=== PATIENT | male | born 1985 | race Caucasian/White ===

== ENCOUNTER 2021-03-23 10:08 | Emergency (ER) | payer OTHER, SELFPAY ==
[2021-03-23 10:27] VITALS: BP 142/87; PULSE 100; RESP 18; TEMP 36.8; O2SAT 99
--- NOTE | 2021-03-23 10:44 | ED.BACK ---
HPI - Back Pain/Injury General Chief Complaint: Back Pain/Injury Stated Complaint: Lower back pain Time Seen by Provider: 03/23/21 10:35 Source: patient Mode of arrival: ambulatory Limitations: no limitations History of Present Illness HPI Narrative: Ten Solomon is a 35 yo male with no PMH [facility] pain that was 2 weeks old that made him stay off work. He states he has been sitting basically and getting up and doing things until his back starts to hurt and then sitting down again. He has not iced his back taken Tylenol or taken ibuprofen. However today he seems able to move relatively well for his physical condition. He is a smoker Related Data Allergies Allergy/AdvReac Type Severity Reaction Status Date / Time No Known Allergies Allergy Verified 03/23/21 10:34 Review of Systems Review of Systems: CONSTITUTIONAL: Denies fever, chills, sweats. EYES: Denies visual changes, redness, discharge. ENT: Denies rhinorrhea, congestion, sore throat, otalgia. CARDIOVASCULAR: Denies chest pain, palpitations, edema. RESPIRATORY: Denies dyspnea, wheezing, cough GASTROINTESTINAL: Denies abdominal pain, nausea, vomiting, diarrhea. GENITOURINARY: Denies dysuria, hematuria, abnormal discharge SKIN: Denies rash or itching. NEUROLOGIC: Denies numbness, or focal weakness. PSYCHIATRIC: Denies anxiety or depression. Lumbar back pain PMFSH Past Medical History Medical History No acute medical problems Surgical History Surgical History H/O knee surgery 2011,2012,2013 - Dr. Pena Family History Family History Other High cholesterol Social History Social History Smoking status: Current every day smoker Alcohol intake: never Additional occupation/education comments: [employer], industrial truck operator Gender identity (if verbalized by the patient): Male Comments At time of signature, I agree with nursing past medical, surgical, social and family history. There is no relevant family history pertinent to the presenting complaint. Exam Narrative: GENERAL: This is a well-nourished, well-developed patient, in mild distress. Patient does not appear to be in great physical condition HEAD: normocephalic, atraumatic. EYES: Sclera clear/white. Vision is grossly intact. EARS: External ears normal,. Hearing grossly intact. NOSE: External nose normal without nasal discharge, nares without redness, no rhinorrhea. THROAT: Mucous membranes moist, NECK: Neck supple, CARDIOVASCULAR: Mild tachycardia rate and rhythm without murmurs, gallops, or rubs. RESPIRATORY: Clear to auscultation. Breath sounds equal bilaterally. No wheezes, rales, or rhonchi. GASTROINTESTINAL: Abdomen soft SKIN: warm, intact with no suspicious lesions or rash, good texture and turgor. NEURO: awake, alert, and oriented to person, place and time. There were no obvious focal neurologic abnormalities. Steady gait EXTREMITIES: Normal range of motion. BACK: Mildly tender without deformity; able to bend forward although cannot touch toes, able to twist left arm right without pain Course Course Emergency Course: Patient comes to [facility] with 2-week old back pain he is trying to go back to work and he also has no medication for the lumbar back pain that he is experiencing Started on baclofen and ibuprofen 800 mg cautioned to eat with taking ibuprofen He will take note that he was seen here to her human resources and try to work out his Workmen's Comp. package Vital Signs Vital signs: Vital Signs Temperature 98.2 F 03/23/21 10:27 Pulse Rate 100 03/23/21 10:27 Respiratory Rate 18 03/23/21 10:27 Blood Pressure 142/87 H 03/23/21 10:27 Pulse Oximetry 99 03/23/21 10:27 Temperature 98.2 F 03/23/21 10:27 Pulse Rate 1
== END 2021-03-23 11:00 | disposition home or self-care (01) ==
PROVIDERS: Emergency Provider Nurse Practitioner
DX: S39.012A Strain of muscle, fascia and tendon of lower back, initial encounter (principal); X58.XXXA Exposure to other specified factors, initial encounter
CPT/HCPCS: 99213; G0463

== ENCOUNTER 2022-06-07 08:54 | Outpatient (CLI) | payer OTHER, SELFPAY ==
[2022-06-07 19:11] LABS: Basophils Absolute Auto 0.1 K/mm3 (0.0-0.1); Basophils Percent Auto 1.4 % (0.2-1.2); Eosinophils Absolute Auto 0.3 K/mm3 (0-0.3); Eosinophils Percent Auto 4.6 % (0-4.4); Hematocrit 46.3 % (42.0-52.0); Hemoglobin 14.2 g/dL (14.0-18.0); Immature Granulocyte Absolute 0.03 K/mm3 (0.00-0.031); Immature Granulocyte Percent A 0.4 % (0-0.5); Lymphocytes Absolute Auto 2.38 K/mm3 (0.9-3.2); Lymphocytes Percent Auto 32.9 % (18.3-44.2); Mean Corpuscular HGB Conc 30.7 g/dl (32-36); Mean Corpuscular Hemoglobin 26.9 pg (26-34); Mean Corpuscular Volume 87.7 fl (80-100); Mean Platelet Volume 9.8 fl (7.4-10.4); Monocytes Absolute Auto 0.7 K/mm3 (0.1-0.6); Monocytes Percent Auto 10.2 % (2.6-8.5); Neutrophils Absolute Auto 3.7 K/mm3 (1.3-6.7); Neutrophils Percent Auto 50.5 % (45.5-73.1); Platelet Count Result 314 k/mm3 (150-375); Red Blood Count 5.28 M/mm3 (4.6-6.20); Red Cell Distribution Width 15.7 % (11.5-14.5); White Blood Count 7.2 K/mm3 (4.5-10.0)
[2022-06-07 19:28] LABS: Vitamin D 25 Hydroxy 24.8 ng/mL
[2022-06-07 19:36] LABS: Alanine Aminotransferase 52 U/L (6-50); Albumin Level 4.7 g/dL (3.5-5.1); Alkaline Phosphatase 59 U/L (38-126); Anion Gap 8 mmol/L (8-16); Aspartate Amino Transferase 53 U/L (17-59); Bilirubin,Total 0.4 mg/dL (0.2-1.3); Blood Urea Nitrogen 17 mg/dL (9-20); Calcium 9.1 mg/dL (8.4-10.2); Carbon Dioxide 29 mmol/L (22-30); Chloride 102 mmol/L (98-107); Estimated Glomerular Filt Rate > 60; Glucose 102 mg/dL (65-110); HDL Direct 33 mg/dL; Potassium 4.1 mmol/L (3.4-5.0); Sodium 139 mmol/L (137-145); Triglycerides 414 mg/dL (<150)
[2022-06-07 19:42] LABS: LDL Cholesterol Direct 175 mg/dL
[2022-06-07 19:43] LABS: Cholesterol 329 mg/dL (0-200)
== END 2022-06-07 08:55 | disposition home or self-care (01) ==
LOC: ANHGOSHLAB 08:56
PROVIDERS: PCP Family Medicine; Visit Provider Family Medicine
DX: Z00.00 Encounter for general adult medical examination without abnormal findings (principal); I10 Essential (primary) hypertension; E78.5 Hyperlipidemia, unspecified; E55.9 Vitamin D deficiency, unspecified
CPT/HCPCS: 36415; 80053; 80061; 82306; 84443; 85025

== ENCOUNTER → 2022-09-26 13:17 | Outpatient (CLI) | payer OTHER, SELFPAY ==
--- NOTE | ~2022-09-26 | XR_ITS ---
XR foot RT 2V DATE: 09/26/2022 13:29 INDICATION: Injury one month ago. Fifth metatarsal pain. TECHNIQUE: AP and lateral views COMPARISON: None FINDINGS: Prominent plantar and posterior calcaneal enthesopathy without associated erosive change or periostitis. There is mild osteoarthritis of the first metatarsophalangeal joint. No fracture or dislocation, periosteal reaction or bone destruction. No abnormality is noted at the f ifth metatarsal bone. IMPRESSION: No abnormality of the fifth metatarsal Mild first metatarsophalangeal joint osteoarthritis Prominent plantar and posterior calcaneal enthesopathy Reviewed, dictated and finalized at location L.
== END ==
PROVIDERS: PCP Family Medicine; Visit Provider Nurse Practitioner Family
DX: M19.071 Primary osteoarthritis, right ankle and foot (principal)
CPT/HCPCS: 73620

== ENCOUNTER 2024-07-29 11:11 | Outpatient (CLI) | payer OTHER, SELFPAY ==
--- NOTE | ~2024-07-29 | XR_ITS ---
CHEST RADIOGRAPH, PA AND LATERAL CLINICAL HISTORY: R06.00 - Dyspnea, unspecified . COMPARISON: None available TECHNIQUE: PA and lateral views of the chest. FINDINGS The cardiomediastinal silhouette is unremarkable. The lungs are clear. Visualized osseous structures and soft tissues are unremarkable. IMPRESSION: No focal infiltrate or effusion. Reviewed, dictated and finalized at location A. TURRET LATHE SET UP OPERATOR
== END 2024-07-29 11:12 | disposition home or self-care (01) ==
LOC: GOSHIMG 11:12
PROVIDERS: PCP Family Medicine; Visit Provider Family Medicine
DX: R06.00 Dyspnea, unspecified (principal); J45.909 Unspecified asthma, uncomplicated; R60.0 Localized edema
CPT/HCPCS: 71046

== ENCOUNTER 2024-08-04 11:34 | Outpatient (CLI) | payer OTHER, SELFPAY ==
--- OUTSIDE RECORDS SUMMARY | 2024-08-04 13:09 | XMS_ITS | Clinical Summary ---
Author Organization [facility] Address [address] [place] [address] Care Team Providers Care Bread Oven Operator Name Role Phone Neal Segal MD Primary Care Provider [phone] Social History Tobacco Use Types Packs/Day Years Used Date Smoking Tobacco: Never Assessed Sex and Gender Information Value Date Recorded Sex Assigned at Not on file Legal Sex Male 2:31 PM CDT Gender Identity Not on file Sexual Orientation Not on file Last Filed Vital Signs Vital Sign Reading Time Taken Comments Blood Pressure 132/82 05/12/2017 3:46 PM MOLDER PIPE COVERING Pulse 100 05/12/2017 3:46 PM MOLDER PIPE COVERING Temperature - - Respiratory Rate - - Oxygen Saturation - - Inhaled Oxygen Concentration - - Weight 103 kg (227 lb) 05/12/2017 3:46 PM MOLDER PIPE COVERING Height 180.3 cm (5' 11 ) 05/12/2017 3:46 PM MOLDER PIPE COVERING Body Mass Index 31.66 05/12/2017 3:46 PM MOLDER PIPE COVERING Plan of Treatment Health Maintenance Due Date Last Done Comments Annual Physical 1988 Hepatitis C 2003 DTaP, Tdap and Td Vaccines ( 1 - Tdap) 2004 Hepatitis B Vaccines (1 of 3 - 19+ 3-dose series) 2004 COVID-19 Vaccine (2023-2 5 season) 2024 Influenza Adult (#1) 2024 04/16/2017 HPV Vaccines Aged Out No longer eligi ble based on patient's age to complete this topic Meningococcal B Vaccine Aged Out No l onger eligible based on patient's age to complete this topic Meningococcal Vaccine Aged Out No ines monique eligible based on patient's age to complete this topic Pneumococcal Vaccine: Pediat rics (0 to 5 Years) and At-Risk Patients (6 to 64 Years) Aged Out No longer eligi ble based on patient's age to complete this topic RSV Immunizations Under 20 Months Aged Out No longer eligible based on patient's age to complete this topic Care Teams Bread Oven Operator Relationship Specialty Start Date End Date Neal Segal MD [address] [place] [address] PCP - General 09/15/15
--- OUTSIDE RECORDS SUMMARY | 2024-08-04 13:09 | XMS_ITS | Clinical Summary ---
Author Organization [facility] Address [address] [facility] [facility] [place] [address] Care Team Providers Care Spud Driller Name Role Phone Unavailable Primary Care Provider Unavailabl e Social History Tobacco Use Types Packs/Day Years Used Date Smoking Tobacco: Never Assessed Sex and Gender Information Value Date Recorded Sex Assigned at Not on file Legal Sex Male 7:51 AM CDT Gender Identity Not on file Sexual Orientation Not on file Plan of Treatment Health Maintenance Due Date Last Done Comments DTAP/TDAP/TD VACCINES (1 - Tdap) 2004 HEPATITIS B VACCINES (1 of 3 - 19+ 3-dose series) 2004 INFLUENZA VACCINE (#1) 2024 HPV VACCINES Aged Out No longer eligi ble based on patient's age to complete this topic Insurance [facility] OPTIONS PPO [id number] [place] [id number]
--- OUTSIDE RECORDS SUMMARY | 2024-08-04 13:09 | XMS_ITS | Continuity of Care Document ---
Author Organization [facility] Address [address] [place] [address] [place] [address] Phone Care Team Providers Care Bucket Chucker Name Role Phone Fer Cadet MD Unavailable Unavailable Procedures Procedure Date Eye Exam & Treatment Advance Directives Directive Yes / No Effective Date File Name No Information Encounters Encounter Description Practice Location Reason(s) For Visit Diagnoses Date Provider Providers Copied on Encounter [facility], [address], [place], [place], [id number], [place] tel:[phone] SEC [facility] No Information 8-200 8 Chichi Monroe. [address] [facility] [address], [place], [place], [address], [place]. tel:[phone] Family History Family Member Type Diagnosis Age At Onset No Information Payers Payer name Insurance type Covered republican ID Authoriza tion(s) No Information Social History Type Description Quantity Date Captured Comments Sex Male Smoking Status No Information Chief Complaint And Reason For Visit No Information Reason For Referral Reason For Referral No Information History Of Present Illness Encounter Date Complaint History Of Prese nt Illness No Information Functional Status Date Functional Assessmen t No Information Instructions Date Instruction Additional Infor mation No Information Assessments Type Assessment Date No Information Patient Care Teams Name Effective Dates (start - stop) Status Members No Information
--- OUTSIDE RECORDS SUMMARY | 2024-08-04 13:09 | XMS_ITS | Continuity of Care Document ---
Author Organization [facility] Address [address] [place] [address] Phone Care Team Providers Care Tape Keller Operator Name Role Phone Chun Patterson MD Unavailable Unavailable Allergies, Adverse Reactions, Alerts Substance Reaction Status Criticality No Known Allergies Active No Inform ation Procedures Procedure Date Methylprednisolone 80mg/ml inj 24 OFFICE/OUTPATIENT VISIT EST Advance Directives Directive Yes / No Effective Date File Name No Information Encounters Encounter Description Practice Location Reason(s) For Visit Diagnoses Date Provider Providers Copied on Encounter OFFICE/OUTPAT IENT VISIT EST [facility] , [address] [facility] [address], [place], [address], [place] tel:[phone] [facility] Body mass index [BMI] 39.0-39.9, adultPain, joint, shoulder, left Leonardo Mccollum. [address] [place], [place], [address]. tel:[phone] Referring Provider: Pily Smalls [address], [place], [address]. tel:[phone] Family History Family Member Type Diagnosis Age At Onset No Information Payers Payer name Insurance type Covered constitution party ID Authorjadaa jori(s) UMR E2 OT [id number] Social History Type Description Quantity Date Captured Comments Alcohol Use Details No Caffeine Use Details Unknown Tobacco Use Status Light cigarette smok er (1-9 cigs/day) Smoking Status Light tobacco smoker Smoking Tobacco Use Details Cigarette: No Details Available Cigarette: 3 Cigarettes per day Sex Male Vital Signs Date / Time: Height Weight BMI Pulse Rate Blood Pressure Temperature Respiratory Rate Body Surface Area Head Circumference Head Circ. Percentile Wt./Frank. Percentile BMI percentile Pulse Ox Inhaled Ox 9:13 AM 71.00 in 127.006 kg (280.00 lbs) 39.0 5 kg/m eter (2) Chief Complaint And Reason For Visit No Information Reason For Referral Reason For Referral No Information Plan Of Treatment Date Type Action Status Goal Tobacco cessation counseling completed Goal Dietary management education , guidance, and counseling completed History Of Present Illness Encounter Date Complaint History Of Prese nt Illness No Information Functional Status Date Functional Assessmen t No Information Instructions Date Instruction Additional Infor mation Dietary management e ducation, guidance, and counseling Related to Body mass index [BMI] 39.0-39.9, adult Assessments Type Assessment Date assessment Body mass index [BMI] 39.0-39.9, adult assessment Pain, joint, shoulder, left Patient Care Teams Name Effective Dates (start - stop) Status Members No Information
[2024-08-04 14:14] LABS: Basophils Absolute Auto 0.1 K/mm3 (0.0-0.1); Basophils Percent Auto 1.3 % (0.2-1.2); Eosinophils Absolute Auto 0.3 K/mm3 (0-0.3); Eosinophils Percent Auto 4.6 % (0-4.4); Hematocrit 47.2 % (42.0-52.0); Hemoglobin 14.2 g/dL (14.0-18.0); Immature Granulocyte Absolute 0.05 K/mm3 (0.00-0.031); Immature Granulocyte Percent A 0.7 % (0-0.5); Immature Platelet Fraction Pct 2.9 % (0.9-11.2); Lymphocytes Absolute Auto 2.77 K/mm3 (0.9-3.2); Lymphocytes Percent Auto 38.8 % (18.3-44.2); Mean Corpuscular HGB Conc 30.1 g/dl (32-36); Mean Corpuscular Hemoglobin 27.1 pg (26-34); Mean Corpuscular Volume 90.1 fl (80-100); Mean Platelet Volume 9.9 fl (7.4-10.4); Monocytes Absolute Auto 0.6 K/mm3 (0.1-0.6); Neutrophils Absolute Auto 3.3 K/mm3 (1.3-6.7); Neutrophils Percent Auto 46.6 % (45.5-73.1); Platelet Count Result 262 k/mm3 (150-375); Red Blood Count 5.24 M/mm3 (4.6-6.20); White Blood Count 7.1 K/mm3 (4.5-10.0)
[2024-08-04 16:35] LABS: Alanine Aminotransferase 55 U/L (6-50); Albumin Level 4.3 g/dL (3.5-5.1); Alkaline Phosphatase 76 U/L (38-126); Anion Gap 10 mmol/L (4-12); Aspartate Amino Transferase 39 U/L (17-59); Bilirubin,Total 0.5 mg/dL (0.2-1.3); Blood Urea Nitrogen 26 mg/dL (9-20); Calcium 8.8 mg/dL (8.4-10.2); Carbon Dioxide 29 mmol/L (22-30); Chloride 101 mmol/L (98-107); Cholesterol 285 mg/dL (0-200); Estimated Glomerular Filt Rate > 60; Glucose 134 mg/dL (65-110); Potassium 4.1 mmol/L (3.4-5.0); Sodium 140 mmol/L (137-145)
[2024-08-04 16:54] LABS: LDL Cholesterol Direct 142 mg/dL
[2024-08-04 17:05] LABS: Triglycerides 771 mg/dL (<150)
[2024-08-04 17:06] LABS: Vitamin D 25 Hydroxy < 12.8 ng/mL
[2024-08-04 17:28] LABS: Hemoglobin A1C 6.7 % (<5.7)
== END 2024-08-04 11:35 | disposition home or self-care (01) ==
LOC: ANHGOSHLAB 11:35
PROVIDERS: PCP Family Medicine; Visit Provider Family Medicine
DX: Z00.00 Encounter for general adult medical examination without abnormal findings (principal); E78.5 Hyperlipidemia, unspecified; I10 Essential (primary) hypertension; R73.9 Hyperglycemia, unspecified; E53.8 Deficiency of other specified B group vitamins; E55.9 Vitamin D deficiency, unspecified; Z79.899 Other long term (current) drug therapy
CPT/HCPCS: 36415; 80053; 80061; 82306; 82607; 83036; 84443; 85025; 85055

== ENCOUNTER 2024-08-30 11:09 | Outpatient (CLI) | payer OTHER, SELFPAY | END 2024-08-30 11:10 | disposition home or self-care (01) | LOC: ANHCARD 11:10 | PROVIDERS: PCP Family Medicine; Visit Provider Family Medicine | DX: R00.0 Tachycardia, unspecified (principal) | CPT/HCPCS: 93242 ==

== ENCOUNTER 2024-10-12 07:22 | Outpatient (CLI) | payer OTHER, SELFPAY ==
--- OUTSIDE RECORDS SUMMARY | 2024-10-12 07:25 | XMS_ITS | Clinical Summary ---
Author Organization [facility] Address [address] [facility] [place] [address] Care Team Providers Care Brush And Broom Clipper Name Role Phone Unavailable Primary Care Provider [...] patient's age to complete this topic Insurance [facility] OPTIONS PPO [id number] [place] [id number]
--- OUTSIDE RECORDS SUMMARY | 2024-10-12 07:25 | XMS_ITS | Clinical Summary ---
Author Organization [facility] Address [address] [place] [address] Care Team Providers Care Operations And Maintenance Technican Name Role Phone Neal Segal MD Primary Care Provider [phone] Social History Tobacco Use Types Packs/Day Years Used Date Smoking Tobacco: Never Assessed Sex and Gender Information Value Date Recorded Sex Assigned at Not on file Legal Sex Male 2:31 PM CDT Gender Identity Not on file Sexual Orientation Not on file Last Filed Vital Signs Vital Sign Reading Time Taken Comments Blood Pressure 132/82 05/12/2017 3:46 PM MAINTAINER OPERATOR Pulse 100 05/12/2017 3:46 PM MAINTAINER OPERATOR Temperature - - Respiratory Rate - - Oxygen Saturation - - Inhaled Oxygen Concentration - - Weight 103 kg (227 lb) 05/12/2017 3:46 PM MAINTAINER OPERATOR Height 180.3 cm (5' 11 ) 05/12/2017 3:46 PM MAINTAINER OPERATOR Body Mass Index 31.66 05/12/2017 3:46 PM MAINTAINER OPERATOR Plan of Treatment Health Maintenance Due Date Last Done Comments Annual Physical 1988 Hepatitis C 2003 DTaP, Tdap and Td Vaccines ( 1 - Tdap) 2004 Hepatitis B Vaccines (1 of 3 - 19+ 3-dose series) 2004 COVID-19 Vaccine (2023-2 5 season) 2024 HPV Vaccines Aged Out No longer eligi ble based on patient's age to complete this topic Meningococcal B Vaccine Aged Out No l onger eligible based on patient's age to complete this topic Meningococcal Vaccine Aged Out No ines monique eligible based on patient's age to complete this topic Pneumococcal Vaccine: Pediat rics (0 to 5 Years) and At-Risk Patients (6 to 49 Years) Aged Out No longer eligible b ased on patient's age to complete this topic RSV Immunizations Under 20 Months Aged Out No longer eligible based on patient's age to complete this topic Care Teams Operations And Maintenance Technican Relationship Specialty Start Date End Date Neal Segal MD [address] [place] [address] PCP - General 09/15/15
--- OUTSIDE RECORDS SUMMARY | 2024-10-12 07:25 | XMS_ITS | Continuity of Care Document ---
Author Organization [facility] Address [address] [place] [address] [place] [address] Phone Care Team Providers Care Intermediate Teacher Name Role Phone Fer Cadet MD Unavailable Unavailable Procedures Procedure Date Eye Exam & Treatment Advance Directives Directive Yes / No Effective Date File Name No Information Encounters Encounter Description Practice Location Reason(s) For Visit Diagnoses Date Provider Providers Copied on Encounter [facility], [address], [place], [place], [address], [place] tel:[phone] SEC [facility] No Information 8-[address] Chichi Monroe. [address] [facility] [address], [place], [place], [address], [place]. tel:[phone] Family History Family Member Type Diagnosis Age At Onset No Information Payers Payer name Insurance type Covered constitution party ID Authoriza tion(s) No Information Social History [...]
--- OUTSIDE RECORDS SUMMARY | 2024-10-12 07:25 | XMS_ITS | Continuity of Care Document ---
Author Organization [facility] Address [address] [place] [address] Phone Care Team Providers Care Steel Erecting Pusher Name Role Phone Chun Patterson MD Unavailable [...] OFFICE/OUTPAT IENT VISIT EST [facility] , [address] [facility] [address], [place], [address], [place] tel:[phone] [facility] Body mass index [BMI] 39.0-39.9, adultPain, joint, shoulder, left Leonardo Mccollum. [address] [place], [place], [address]. tel:[phone] Referring Provider: Pily Smalls [address], [place], [address]. tel:[phone] Family History Family Member Type Diagnosis Age At Onset No Information Payers Payer name Insurance type Covered alliance party ID Authorjadaa jori(s) UMR E2 OT [id number] Social History Type Description Quantity Date Captured [...]
--- NOTE | 2024-10-12 07:47 | ECHO_ITS ---
Patient Info Name: Ten Solomon Age: 39 years : 1985 Gender: Male Ht: 71 in Wt: 315 lbs BSA: 2.74 m2 HR: 118 bpm BP: 113 / 74 mmHg Technical Quality: Fair, Pt refused Definity Exam Date: 10/12/2024 7:57 AM Exam Location: Echo Lab Patient Status: Outpatient Admit Date: 10/12/2024 Staff Ordering Physician: Frankie Solano MD Cutting Tool Sharpener: Pamela Rossi RDCS Attending Provider: Frankie Solano MD Exam Type: CA echo doppler color flow Study Info Indications I10 - Essential (primary) hypertension Complete two-dimensional, color flow and Doppler transthoracic echocardiogram is performed. Summary 1. Complete two-dimensional, color flow and Doppler transthoracic echocardiogram is performed. 2. Left ventricular chamber dimension is normal. 3. Left ventricular systolic function is mildly reduced, estimated at 45-50%. 4. There is mild concentric increased left ventricular wall thickness. 5. Left ventricular septal wall motion is abnormal with septal motion related to bundle branch block. 6. The left ventricular diastolic function is normal. 7. Left atrial chamber dimension is moderately enlarged. 8. Right atrial chamber dimension is mildly enlarged. 9. There is mild mitral valve regurgitation. 10. There is mild tricuspid valve regurgitation. 11. No pulmonary hypertension, estimated pulmonary arterial systolic pressure is 31 mmHg. Left Ventricle Tissue doppler is not performed. Left ventricular chamber dimension is normal. Left ventricular systolic function is mildly reduced, estimated at 45-50%. There is mild concentric increased left ventricular wall thickness. Left ventricular septal wall motion is abnormal with septal motion related to bundle branch block. The left ventricular diastolic function is normal. Right Ventricle Right ventricular chamber dimension is normal. Right ventricular systolic function is normal. Left Atria Left atrial chamber dimension is moderately enlarged. Right Atria Right atrial chamber dimension is mildly enlarged. Aortic Valve The aortic valve is trileaflet. There is no aortic valve stenosis. There is no aortic valve regurgitation. Pulmonic Valve There is no pulmonic regurgitation. Mitral Valve There is no mitral valve stenosis. There is mild mitral valve regurgitation. Tricuspid Valve There is mild tricuspid valve regurgitation. No pulmonary hypertension, estimated pulmonary arterial systolic pressure is 31 mmHg. Pericardium/Pleural There is no pericardial effusion. Inferior Vena Cava Normal inferior vena cava with >50% collapse upon inspiration consistent with normal right atrial pressure, 5 mmHg. Aorta The aortic root size at the sinus of Valsalva is normal. Left Ventricular Outflow Tract Name Value Normal LVOT Doppler LVOT Peak Gradient 4 mmHg LVOT Mean Gradient 3 mmHg LVOT VTI 17 cm LVOT VTI/AV VTI Ratio 0.9 Pulmonic Valve Name Value Normal PV Doppler PV Peak Gradient 2 mmHg Tricuspid Valve Name Value Normal TV Regurgitation Doppler TR Peak Velocity 255 cm/s TR Peak Gradient 25 mmHg Estimated PAP/RSVP RA Pressure 5 mmHg <=5 PA Systolic Pressure 31 mmHg <36 RV Systolic Pressure 31 mmHg <36 Aorta Name Value Normal Ascending Aorta Ao Root Diameter (MM) 3.5 cm Ao Root Diam Index (MM) 1.3 cm/m2 Aortic Valve Name Value Normal AV Doppler AV Peak Velocity 118 cm/s AV Peak Gradient 6 mmHg AV Mean Gradient 3 mmHg AV VTI 19 cm Ventricles Name Value Normal LV Dimensions 2D/MM IVS Diastolic Thickness (2D) 1.4 cm 0.6-1.0 LVID Diastole (2D) 4.7 cm 4.2-5.8 LVIW Diastolic Thickness (2D) 1.4 cm 0.6-1.0 LVID Systole (2D) 3.9 cm 2.5-4.0 LV Mass (2D Cubed) 252.16 g 88.00-224.00 LV Mass Index (2D Cubed) 92 g/m2 49-115 Relative Wall Thickness (2D) 0.58 LV Fractional Shortening/Ejection Fraction 2D/MM LV Fractional Shortening (2D) 17 % 25-43 LV EF (2D Teicholz) 36 % 52-72 LV Diastolic Volume (4C MOD) 115 ml LV EF (4C MOD) 50 % LV Diastolic Volume (2C MOD) 113 ml LV EF (2C MOD) 43 % LV Diastolic Volume (BP MOD) 116 ml 62-150 LV Diastolic Volume Index (BP MOD) 42 ml/m2 34-74 LV Systolic Volume (BP MOD) 63 ml 21-61 LV Systolic Volume Index (BP MOD) 23 ml/m2 11-31 LV EF (BP MOD) 46 % 52-72 LV Diastolic Length (4C) 8.8 cm LV Systolic Length (4C) 7.9 cm LV Stroke Volume (4C MOD) 57 ml RV Dimensions 2D/MM RVID Diastole (2D) 3.6 cm 2.5-3.5 Atria Name Value Normal LA Dimensions LA Dimension (MM) 4.5 cm 3.0-4.1 LA Volume (4C A-L) 105 ml LA Volume (BP A-L) 89 ml RA Dimensions RA Area (4C) 22.6 cm2 <=18.0 Report Signatures
--- NOTE | 2024-10-12 08:40 | IVDEFINITY ---
Pt refused Definity today for echo. Concerned about insurance issues. Possibly open to using Definity next time per doctor and insurance approves. 10/12/24 KW.
== END 2024-10-12 07:23 | disposition home or self-care (01) ==
LOC: ANHCARD 07:23
PROVIDERS: PCP Family Medicine; Visit Provider Family Medicine
DX: R93.1 Abnormal findings on diagnostic imaging of heart and coronary circulation (principal); I48.92 Unspecified atrial flutter; I10 Essential (primary) hypertension
CPT/HCPCS: 93306

== ENCOUNTER 2024-11-15 09:02 | Outpatient (CLI) | payer OTHER, SELFPAY ==
--- NOTE | ~2024-11-15 | NM_ITS ---
EXAMINATION: NM ishan stress w perfusion DATE: 11/15/2024 11:23 INDICATION: Atrial flutter TECHNIQUE: Rest images were obtained following intravenous administration of 11.4 mCi Tc99m tetrofosm in (Myoview). The patient was infused intravenously with Lexiscan (Regadenoson). Then, 32.7 mCi Tc99m tetrofosmin (Myoview) was administered intravenously, and stress images were obtained. Data was ricardo nstructed into short axis and horizontal and vertical long axis SPECT images. Gated SPECT images were also obtained. COMPARISON: None. FINDINGS: Mild nonreversible perfusion defect consistent with infarct involving the mid anterolateral , basilar anterolateral, basilar anterior segments with minimal extension into the mid anterior and a pical lateral segments. No definitive reversible ischemia. There is normal left ventricular chamber s ize, wall motion and ejection fraction. Left ventricular ejection fraction measures 64%. IMPRESSION: 1. Fixed perfusion defect involving the mid anterolateral, basilar anterolateral, basilar anterior se gments with minimal extension into the mid anterior and apical lateral segments consistent with infar ct. No reversible ischemia. 2. Left ventricular ejection fraction measuring 64%. Reviewed, dictated and finalized at location A. IMPRESSION: 1. Fixed perfusion defect involving the mid anterolateral, basilar anterolatera l, basilar anterior segments with minimal extension into the mid anterior and a pical lateral segments consistent with infarct. No reversible ischemia. 2. Left ventricular ejection fraction measuring 64%.
--- NOTE | 2024-11-15 09:16 | EST_ITS ---
Patient Info Name: Ten Solomon Age: 39 years : 1985 Gender: Male Ht: 71 in Wt: 320 lbs BSA: 2.77 m2 Exam Date: 11/15/2024 9:16 AM Patient Status: O Admit Date: 11/15/2024 Exam Type: CA stress ishan w NM A regadenoson stress test was performed. Staff Referring Physician: Brian Cho DO Attending Provider: Brian Cho DO Exercise Physician: Brian Cho DO Summary 1. 1. Negative lexiscan stress test for ischemic ST changes by ECG criteria. 2. 2. Baseline atrial flutter. 3. 3. Nuclear scan to follow and will be reported separately. Please correlate with it. 4. 4. Patient informed of the above results. Protocol: Lexiscan Stress ECG Details Stage: REST Duration (min): 3 min : 3 sec HR (bpm): 117 SBP (mmHg): 128 DBP (mmHg): 73 Stage: REST Duration (min): 8 min : 49 sec HR (bpm): 111 SBP (mmHg): 128 DBP (mmHg): 73 Stage: STAGE 1 Duration (min): 1 min : 0 sec HR (bpm): 118 SBP (mmHg): 128 DBP (mmHg): 73 Stage: RECOVERY Duration (min): 1 min : 0 sec HR (bpm): 120 SBP (mmHg): 119 DBP (mmHg): 73 Stage: RECOVERY Duration (min): 2 min : 0 sec HR (bpm): 121 SBP (mmHg): 119 DBP (mmHg): 73 Stage: RECOVERY Duration (min): 2 min : 39 sec HR (bpm): 120 SBP (mmHg): 125 DBP (mmHg): 63 Rest HR: 111 bpm Peak HR: 121 bpm Rest Sys BP: 128 mmHg Peak Sys BP: 125 mmHg Max Pred HR: 181 bpm % Max Pred HR: 67 % Target HR: 154 bpm Max RPP: 15,125 bpm*mmHg Termination Reason: Completed protocol Cardiac Symptoms: Shortness of breath Total Time: 1 min : 0 sec Rest Winter BP: 73 mmHg Peak Winter BP: 63 mmHg Total Dose: 0.4 mg Resting ECG Atrial flutter with RVR. Stress ECG No ST changes. Arrhythmias No other arrhythmias. Report Signatures
--- OUTSIDE RECORDS SUMMARY | 2024-11-15 09:25 | XMS_ITS | Clinical Summary ---
Author Organization [facility] Address [address] [place] [address] Care Team Providers Care Repairer Switchgear Name Role Phone Unavailable Primary Care Provider [...] patient's age to complete this topic Insurance [facility] OPTIONS PPO [id number] [place] [id number]
--- OUTSIDE RECORDS SUMMARY | 2024-11-15 09:25 | XMS_ITS | Clinical Summary ---
Author Organization [facility] Address [address] [place] [address] Care Team Providers Care Toy Department Manager Name Role Phone Neal Segal MD Primary Care Provider Social History Tobacco Use Types Packs/Day Years Used Date Smoking Tobacco: Never Assessed Sex and Gender Information Value Date Recorded Sex Assigned at Not on file Legal Sex Male 2:31 PM CDT Gender Identity Not on file Sexual Orientation Not on file Last Filed Vital Signs Vital Sign Reading Time Taken Comments Blood Pressure 132/82 05/12/2017 3:46 PM THEATRICAL RIGGER Pulse 100 05/12/2017 3:46 PM THEATRICAL RIGGER Temperature - - Respiratory Rate - - Oxygen Saturation - - Inhaled Oxygen Concentration - - Weight 103 kg (227 lb) 05/12/2017 3:46 PM THEATRICAL RIGGER Height 180.3 cm (5' 11 ) 05/12/2017 3:46 PM THEATRICAL RIGGER Body Mass Index 31.66 05/12/2017 3:46 PM THEATRICAL RIGGER Plan of Treatment Health Maintenance Due Date [...] age to complete this topic Care Teams Toy Department Manager Relationship Specialty Start Date End Date Neal Segal MD [address] [place] [address] PCP - General 09/15/15
--- OUTSIDE RECORDS SUMMARY | 2024-11-15 09:25 | XMS_ITS | Continuity of Care Document ---
Author Organization [facility] Address [address] [place] [address] Phone Care Team Providers Care Dredge Operator Name Role Phone Chun Patterson MD [...] OFFICE/OUTPAT IENT VISIT EST [facility] , [address] [facility] [address], [place], [address], [place] tel:[phone] [facility] Body mass index [BMI] 39.0-39.9, adultPain, joint, shoulder, left Leonardo Mccollum. [address] [place], [place], [address]. tel:[phone] Referring Provider: Pily Sm[address], [place], [address]. tel:[phone] Family History Family Member Type Diagnosis Age At Onset No Information Payers Payer name Insurance type Covered alliance party ID Authorjadaa jori(s) UMR E2 [id number] Social History Type Description Quantity Date Captured [...]
--- OUTSIDE RECORDS SUMMARY | 2024-11-15 09:25 | XMS_ITS | Continuity of Care Document ---
Author Organization [facility] Address [address] [place] [address] [place] [address] Phone Care Team Providers Care Stock Buyer Name Role Phone Fer Cadet MD Unavailable Unavailable Procedures Procedure Date Eye Exam & Treatment Advance Directives Directive Yes / No Effective Date File Name No Information Encounters Encounter Description Practice Location Reason(s) For Visit Diagnoses Date Provider Providers Copied on Encounter [facility], [address] [place] [address] [address], [place], [place], [address], [place] tel:[phone] SEC [facility] No Information 8[address] Chichi Monroe. [address] [facility] [address], [place], [place], [address], [place]. tel:[phone] Family History Family Member Type Diagnosis Age At Onset No Information Payers Payer name Insurance type Covered democrat ID Authoriza tion(s) No Information Social History [...]
== END 2024-11-15 09:03 | disposition home or self-care (01) ==
PROVIDERS: PCP Family Medicine; Visit Provider Internal Medicine Cardiovascular Disease
DX: I48.92 Unspecified atrial flutter (principal)
CPT/HCPCS: 78452; 93017; A9502; J2785

== ENCOUNTER 2024-11-18 01:04 | Day surgery (SDC) | payer OTHER, SELFPAY ==
[2024-11-16 15:16] VITALS: BMI 30.7
--- OUTSIDE RECORDS SUMMARY | 2024-11-17 10:40 | XMS_ITS | Continuity of Care Document ---
Author Organization [facility] Address [address] [place] [address] Phone Care Team Providers Care Ethylene Plant Helper Name Role Phone Chun Patterson MD Unavailable [...] OFFICE/OUTPAT IENT VISIT EST [facility] , [address] [facility] [address], [place], [address], [place] tel:[phone] [facility] Body mass index [BMI] 39.0-39.9, adultPain, joint, shoulder, left Leonardo Mccollum. [address] [place], [place], [address]. tel:[phone] Referring Provider: [address]ily Sm[address], [place], [address]. tel:[phone] Family History Family Member Type Diagnosis Age At Onset No Information Payers Payer name Insurance type Covered republican ID Authorjadaa jori(s) UMR E2 OT [id number] Social History Type Description Quantity Date Captured [...]
--- OUTSIDE RECORDS SUMMARY | 2024-11-17 10:40 | XMS_ITS | Clinical Summary ---
Author Organization [facility] Address [address] [facility] [place] [address] Care Team Providers Care Intermediate Manager Name Role Phone Unavailable Primary Care Provider [...] patient's age to complete this topic Insurance [facility] OPTIONS PPO [id number] [place] [id number]
--- OUTSIDE RECORDS SUMMARY | 2024-11-17 10:40 | XMS_ITS | Continuity of Care Document ---
Author Organization [facility] Address [address] [place] [address] [place] [address] Phone Care Team Providers Care Plant Electrician Name Role Phone Fer Cadet MD Unavailable Unavailable Procedures Procedure Date Eye Exam & Treatment Advance Directives Directive Yes / No Effective Date File Name No Information Encounters Encounter Description Practice Location Reason(s) For Visit Diagnoses Date Provider Providers Copied on Encounter [facility], [address] [place] [address] [address], [place], [place], [address], [place] tel:[phone] SEC [facility] No Information 8[address] Chichi Monroe. [address] [facility] [address], [place], [place], [address], [place]. tel:[phone] Family History Family Member Type Diagnosis Age [...]
--- OUTSIDE RECORDS SUMMARY | 2024-11-18 01:06 | XMS_ITS | Continuity of Care Document ---
Author Organization [facility] Address [address] [place] [address] Phone Care Team Providers Care Board Operator Name Role Phone Chun Patterson MD [...] OFFICE/OUTPAT IENT VISIT EST [facility] , [address] [facility] [address], [place], [address], [place] tel:[phone] [facility] Body mass index [BMI] 39.0-39.9, adultPain, joint, shoulder, left Leonardo Mccollum. [address] [place], [place], [address]. tel:[phone] Referring Provider: Vargas Rivers, [address], [place], [address]. tel:[phone] Family History Family Member Type Diagnosis Age At Onset No Information Payers Payer name Insurance type Covered libertarian ID Authorjadaa jori(s) UMR E2 [id number] Social History Type Description Quantity Date Captured [...]
--- OUTSIDE RECORDS SUMMARY | 2024-11-18 01:06 | XMS_ITS | Continuity of Care Document ---
Author Organization [facility] Address [address] [place] [address] [place] [address] Phone Care Team Providers Care Naval Aircrewman Mechanical Name Role Phone Fer Cadet MD Unavailable Unavailable Procedures Procedure Date Eye Exam & Treatment Advance Directives Directive Yes / No Effective Date File Name No Information Encounters Encounter Description Practice Location Reason(s) For Visit Diagnoses Date Provider Providers Copied on Encounter [facility], [address] [place] [address] [address], [place], [place], [address], [place] tel:[phone] SEC [facility] No Information 8[address] Chichi Monroe. [address] [facility] [address], [place], [place], [address], [place]. tel:[phone] Family History Family Member Type Diagnosis Age [...]
--- OUTSIDE RECORDS SUMMARY | 2024-11-18 01:06 | XMS_ITS | Clinical Summary ---
Author Organization [facility] Address [address] [facility] [address] Care Team Providers Care Florist'S Decorator Name Role Phone Unavailable Primary Care Provider [...] patient's age to complete this topic Insurance [facility] OPTIONS PPO [id number] [place] [id number]
[2024-11-18 07:30] VITALS: BP 138/99; PULSE 118; RESP 20; TEMP 36.5; O2SAT 96; BMI 44.7
--- NOTE | 2024-11-18 07:30 | ECG_ITS ---
Test Date: 2024-11-18 07:27:11 Measurements Intervals [place] Rate: 118 P: 0 MD: 0 QRS: 91 QRSD: 104 T: 25 QT: 306 QTc: 430 Interpretive Statements ATRIAL FLUTTER/TACHYCARDIA WITH RAPID VENTRICULAR RESPONSE INDETERMINATE AXIS INCOMPLETE RIGHT BUNDLE BRANCH BLOCK [90+ ms QRS DURATION, TERMINAL R IN V1/V2, 40+ ms S IN I/aVL/V4/V5/V6] MODERATE ST DEPRESSION [0.05+ mV ST DEPRESSION] No previous ECG available for comparison Electronically Signed On 11-18-2024 14:06:56 CDT by Rigoberto Norris M.D.
[2024-11-18 08:12] LABS: Anion Gap 10 mmol/L (4-12); Blood Urea Nitrogen 22 mg/dL (9-20); Calcium 9.4 mg/dL (8.4-10.2); Carbon Dioxide 29 mmol/L (22-30); Chloride 101 mmol/L (98-107); Estimated CRCL calculation 151 ml/min; Estimated Glomerular Filt Rate > 60; Glucose 140 mg/dL (65-110); Magnesium 1.8 mg/dL (1.6-2.3); Potassium 4.1 mmol/L (3.4-5.0); Sodium 140 mmol/L (137-145)
--- NOTE | 2024-11-18 08:54 | P.PNAN_ITS ---
Anes - Initial Pre Proc Eval Procedure: Operation Date: 11/18/24 09:00 Proposed Procedures p Trans Esophageal Echo - Brian Cho DO s Electrical Cardioversion - Brian Cho DO Date/Time: 11/18/24 08:54 Surgeon: Brian Cho DO Pre Op Diagnosis: a- fib Patient Data Age: 39 Gender: M Height: 1.8 m Weight: 145.5 kg Last Vital Signs Temp 36.5 C 11/18/24 07:30 Pulse 118 H 11/18/24 07:30 Resp 20 11/18/24 07:30 BP 138/99 H 11/18/24 07:30 Pulse Ox 96 11/18/24 07:30 O2 Del Method Room Air 11/18/24 07:30 Allergies Allergy/AdvReac Type Severity Reaction Status Date / Time lisinopril AdvReac Intermediate Vomiting Verified 11/18/24 07:26 amlodipine AdvReac Mild pedal edema Verified 11/18/24 07:26 Home Medications ?Medication ?Instructions ?Recorded ?Confirmed ?Type carvedilol 25 mg tablet (Coreg) 25 mg PO Q12H #180 tabs 07/29/24 11/18/24 Rx atorvastatin 10 mg tablet (Lipitor) 10 mg PO QHS #90 tabs 08/05/24 11/18/24 Rx fenofibrate 160 mg tablet 160 mg PO DAILY #90 tabs 08/05/24 11/18/24 Rx metformin 500 mg tablet,extended 500 mg PO QPM #90 tabs 08/05/24 11/18/24 Rx release 24 hr (Glucophage XR) losartan 100 1 tablet PO DAILY #90 tabs 09/16/24 11/18/24 Rx mg-hydrochlorothiazide 25 mg tablet aspirin 325 mg tablet,delayed 325 mg PO DAILY #90 tabs 09/29/24 11/18/24 Rx release flecainide 100 mg tablet 100 mg PO Q12H #60 tabs 09/29/24 11/18/24 Rx naproxen 500 mg tablet 500 mg PO DAILY 10/14/24 11/18/24 History diltiazem HCl 240 mg 480 mg (2 x 240 mg) PO DAILY #60 10/27/24 11/18/24 Rx capsule,extended release 24 hr caps (Cartia XT) Laboratory Tests 11/18/24 07:56 Sodium 140 mmol/L (137-145) Potassium 4.1 mmol/L (3.4-5.0) Chloride 101 mmol/L (98-107) Carbon Dioxide 29 mmol/L (22-30) Anion Gap 10 mmol/L (4-12) BUN 22 H mg/dL (9-20) Creatinine 0.84 mg/dL (0.7-1.3) Estim Creat Clear Calc 151 ml/min Estimated GFR > 60 (59 - ) Glucose 140 H mg/dL (65-110) Calcium 9.4 mg/dL (8.4-10.2) Magnesium 1.8 mg/dL (1.6-2.3) Patient hx anesthesia problems: none Family hx anesthesia problems: none Results Review: All pre-operative results and documents have been reviewed as part of the pre- operative evaluation. [facility] Past Medical History Medical History Atrial flutter Low testosterone in male Left ankle injury Right foot injury Vitamin D deficiency Osteoarthritis Dyslipidemia Essential (primary) hypertension Surgical History Surgical History History of shoulder surgery (~10/16/22) left: Dr. Mccoy History of left knee surgery 2011,2012,2013 - Dr. Pena Family History Family History Other High cholesterol Social History Social History Smoking packs per day: 0.25 Smoking cigarettes per day: 5.0 Years smoked: 10 Smoking pack-years: 2.50 Smoking status: Current every day smoker Tobacco type: cigarettes Alcohol intake: never Substance use: never Substance use type: does not use Lack of Transportation: No Lack of Food: Never True Current Housing: I Have Housing Concerned About Future Housing: No Difficulty Paying Gas/Electric Bills: No Difficulty Paying for Meds: No Currently Unemployed: No Education: Bachelor's Degree Difficulty w/ Childcare or Family Care: No Living arrangements: alone Occupation/Education: occupation 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 Informed Consent: The patient's anesthetic plan and its attendant risks and benefits were discussed with the patient/family/POA. Questions were solicited and answers provided to the satisfaction of the patient/family/POA.
--- NOTE | 2024-11-18 09:00 | ECHO_ITS ---
Patient Info Name: Ten Solomon Age: 39 years : 1985 Gender: Male HR: 119 bpm Exam Date: 11/18/2024 8:47 AM Patient Status: O Admit Date: 11/18/2024 Exam Type: CA echo transesophageal Complete two-dimensional, color flow and Doppler transesophageal study is performed. Guest Services Coordinator: Pamela Rossi Attending Provider: Brian Cho DO Summary 1. Left ventricular chamber dimension is mildly enlarged. 2. Left ventricular systolic function is moderately reduced with an ejection fraction of 40-45% by visual estimation. 3. There is moderate concentric increased left ventricular wall thickness. 4. The left ventricular diastolic function is indeterminate as it was not assessed. 5. Patient is in atrial flutter. 6. Right ventricular chamber dimension is mildly enlarged. 7. Right ventricular systolic function is at least mildly reduced. 8. Left atrial chamber dimension is moderately enlarged. 9. Right atrial chamber dimension is mildly enlarged. 10. There is mild mitral valve regurgitation. 11. There is trace tricuspid valve regurgitation. Procedure Details Risks/benefits/alternative to JAYCOB discuss with patient and he gave informed consent. Patient was monitored electrocardiographically and is in atrial flutter at 120 bpm, BP 140/70 mmHg. Patient was sedated as per anesthesia. JAYCOB probe advanced into esophagus without incident. Multiple images were obtained. JAYCOB probe withdrawn and no blood on JAYCOB probe tip. Patient tolerated procedure well with no complications. Left Ventricle Left ventricular chamber dimension is mildly enlarged. Left ventricular systolic function is moderately reduced with an ejection fraction of 40-45% by visual estimation. There is moderate concentric increased left ventricular wall thickness. The left ventricular diastolic function is indeterminate as it was not assessed. Patient is in atrial flutter. Right Ventricle Right ventricular chamber dimension is mildly enlarged. Right ventricular systolic function is at least mildly reduced. Left Atria Left atrial chamber dimension is moderately enlarged. Right Atria Right atrial chamber dimension is mildly enlarged. Atrial Appendage There is no thrombus visualized in the left atrial appendage. Aortic Valve The aortic valve is trileaflet. There is no aortic valve stenosis. There is no aortic valve regurgitation. Pulmonic Valve There is no pulmonic regurgitation. Mitral Valve There is no mitral valve stenosis. There is mild mitral valve regurgitation. Tricuspid Valve There is trace tricuspid valve regurgitation. RVSP is not measured. Pericardium/Pleural There is no pericardial effusion. Inferior Vena Cava Inferior vena cava is not well visualized. Aorta The aortic root size at the sinus of Valsalva is normal. Report Signatures
[2024-11-18 09:30] VITALS: BP 142/111; PULSE 95; RESP 17; O2SAT 94
--- NOTE | 2024-11-18 09:30 | ECG_ITS ---
Test Date: 2024-11-18 09:07:29 Measurements Intervals [place] Rate: 86 P: 59 [place]: 183 QRS: 71 QRSD: 110 T: 38 QT: 366 QTc: 439 Interpretive Statements SINUS RHYTHM Compared to ECG 11/18/2024 07:27:11 Atrial flutter no longer present Indeterminate axis no longer present ST (T wave) deviation no longer present Electronically Signed On 11-18-2024 14:08:29 CDT by Rigoberto Norris M.D.
[2024-11-18 09:45] VITALS: BP 137/67; PULSE 94; RESP 19; O2SAT 94
--- NOTE | 2024-11-18 09:53 | WPDCARDVER ---
Cardioversion Cardioversion Date of procedure: 11/18/24 Procedure: DC Cardioversion Pre-op diagnosis: Symptomatic atrial flutter Post-op diagnosis: Same Description of procedure: Risks/benefits/alternative to procedures discuss with patient and he gave informed consent. JAYCOB performed and showed no left atrial appendage thrombus. HR at 120 bpmm in atrial flutter, BP 140/70 mmHg. Sedation offered by anesthesiology. Defibrillator pads placed on anterior and posterior chest, and set at 200 J biphasic synchronized energy. Shockx1 and was successful at restoring sinus rhythm. Patient tolerated procedure well with no complications. HR is 70 bpm in sinus rhythm, BP 140/70 mmHg. Sedation: As per anesthesia. Conclusion: 1. Successful DC cardioversion to sinus rhythm. [facility] [place]illing for Cardioversion: Cardioversion
[2024-11-18 10:00] VITALS: BP 133/79; PULSE 93; RESP 22; O2SAT 93
[2024-11-18 10:15] VITALS: BP 140/97; PULSE 97; RESP 16; O2SAT 93
[2024-11-18 10:30] VITALS: BP 142/94; PULSE 94; RESP 24; O2SAT 94
== END 2024-11-18 11:00 | disposition home or self-care (01) ==
PROVIDERS: PCP Family Medicine; Visit Provider Internal Medicine Cardiovascular Disease
PROC: (CPT 93312; principal; 2024-11-18 09:00)
PROC: 5A2204Z Restoration of Cardiac Rhythm, Single (ICD-10-PCS; 2024-11-18 09:00)
DX: I48.92 Unspecified atrial flutter (principal); I34.0 Nonrheumatic mitral (valve) insufficiency; F17.210 Nicotine dependence, cigarettes, uncomplicated; E66.01 Morbid (severe) obesity due to excess calories; Z68.41 Body mass index [BMI] 40.0-44.9, adult
CPT/HCPCS: 36415; 80048; 83735; 92960; 93312; 93320; 93325; J2250; J2704; J3010

== ENCOUNTER 2024-12-29 18:34 | Emergency (ER) | payer OTHER, SELFPAY ==
--- NOTE | ~2024-12-29 | XR_ITS ---
XR foot LT min 3V Ordering provider: Demetra Clancy APRN History: . pain swelling /no trauma . Comparison: None. FINDINGS: BONES: No acute fracture or dislocation. JOINT SPACES: Normal. No tarsal coalition. SOFT TISSUES: Soft tissue swelling over the dorsum of the foot. Calcaneus spur. Ossification of the insertion of the tendo Achilles. IMPRESSION: No acute osseous abnormality left foot. Reviewed, dictated and finalized at location A.
--- OUTSIDE RECORDS SUMMARY | 2024-12-29 18:36 | XMS_ITS | Clinical Summary ---
Author Organization [facility] Address [address] [facility] [place] [address] Care Team Providers Care Repairer Helper Name Role Phone Unavailable Primary Care Provider [...] patient's age to complete this topic Insurance [facility] OPTIONS PPO [id number] [place] [id number]
--- OUTSIDE RECORDS SUMMARY | 2024-12-29 18:36 | XMS_ITS | Clinical Summary ---
Author Organization [facility] Address [address] [place] [address] Care Team Providers Care Health Specialist Name Role Phone Neal Segal MD Primary Care Provider [phone] Social History Tobacco Use Types Packs/Day Years Used Date Smoking Tobacco: Never Assessed Sex and Gender Information Value Date Recorded Sex Assigned at Not on file Legal Sex Male 2:31 PM CDT Gender Identity Not on file Sexual Orientation Not on file Last Filed Vital Signs Vital Sign Reading Time Taken Comments Blood Pressure 132/82 05/12/2017 3:46 PM FIRE EXTINGUISHER TECHNICIAN Pulse 100 05/12/2017 3:46 PM FIRE EXTINGUISHER TECHNICIAN Temperature - - Respiratory Rate - - Oxygen Saturation - - Inhaled Oxygen Concentration - - Weight 103 kg (227 lb) 05/12/2017 3:46 PM FIRE EXTINGUISHER TECHNICIAN Height 180.3 cm (5' 11) 05/12/2017 3:46 PM FIRE EXTINGUISHER TECHNICIAN Body Mass Index 31.66 05/12/2017 3:46 PM FIRE EXTINGUISHER TECHNICIAN Plan of Treatment Health Maintenance Due Date [...] age to complete this topic Care Teams Health Specialist Relationship Specialty Start Date End Date Neal Segal MD [address] [place] [address] PCP - General 09/15/15
--- OUTSIDE RECORDS SUMMARY | 2024-12-29 18:37 | XMS_ITS | Continuity of Care Document ---
Author Organization [facility] Address [address] [place] [address] [place] [address] Phone Care Team Providers Care Graphic Design Intern Name Role Phone Fer Cadet MD Unavailable Unavailable Procedures Procedure Date Eye Exam & Treatment Advance Directives Directive Yes / No Effective Date File Name No Information Encounters Encounter Description Practice Location Reason(s) For Visit Diagnoses Date Provider Providers Copied on Encounter [facility], [address], [place], [place], [address], [place] tel:[phone] SEC [facility] No Information 8-[address] Chichi Monroe. [address] [facility] [address], [place], [place], [address], [place]. tel:[phone] Family History Family Member Type Diagnosis Age At Onset No Information Payers Payer name Insurance type Covered green party ID Authoriza tion(s) No Information Social [...]
--- OUTSIDE RECORDS SUMMARY | 2024-12-29 18:37 | XMS_ITS | Continuity of Care Document ---
Author Organization [facility] Address [address] [place] [address] Phone Care Team Providers Care Transit Manager Name Role Phone Chun Patterson MD Unavailable [...] OFFICE/OUTPAT IENT VISIT EST [facility] , [address] [facility] [address], [place], [address], [place] tel:[phone] [facility] Body mass index [BMI] 39.0-39.9, adultPain, joint, shoulder, left Leonardo Mccollum. [address] [place], [place], [address]. tel:[phone] Referring Provider: Pily Smalls [address], [place], [address]. tel:[phone] Family History Family Member Type Diagnosis Age At Onset No Information Payers Payer name Insurance type Covered democrat ID Authorjadaa jori(s) UMR E2 [id number] Social History Type Description Quantity Date Captured [...]
--- OUTSIDE RECORDS SUMMARY | 2024-12-29 18:39 | XMS_ITS | Continuity of Care Document ---
Author Organization [facility] Address [address] [place] [address] [place] [address] Phone Care Team Providers Care Director Multimedia Name Role Phone Fer Cadet MD Unavailable Unavailable Procedures Procedure Date Eye Exam & Treatment Advance Directives Directive Yes / No Effective Date File Name No Information Encounters Encounter Description Practice Location Reason(s) For Visit Diagnoses Date Provider Providers Copied on Encounter [facility], [address], [place], [place], [address], [place] tel:[phone] SEC [facility] No Information 8-[address] Chichi Monroe. [address] [facility] [address], [place], [place], [address], [place]. tel:[phone] Family History Family Member Type Diagnosis Age [...]
--- OUTSIDE RECORDS SUMMARY | 2024-12-29 18:39 | XMS_ITS | Continuity of Care Document ---
Author Organization [facility] Address [address] [place] [address] Phone Care Team Providers Care Automobile Wrecker Name Role Phone Chun Patterson MD Unavailable [...] OFFICE/OUTPAT IENT VISIT EST [facility] , [address] [facility] [address], [place], [address], [place] tel:[phone] [facility] Body mass index [BMI] 39.0-39.9, adultPain, joint, shoulder, left Leonardo Mccollum. [address] [place], [place], [address]. tel:[phone] Referring Provider: [address] Sm[address], [place], [address]. tel:[phone] Family History Family Member Type Diagnosis Age At Onset No Information Payers Payer name Insurance type Covered democrat ID Authorjadaa jori(s) UMR E2 OT [id number] Social History Type Description Quantity Date Captured [...]
[2024-12-29 18:42] VITALS: BP 164/97; PULSE 83; RESP 20; TEMP 36; O2SAT 97
--- NOTE | 2024-12-29 19:11 | ED_ITS ---
HPI - General Adult General Chief complaint: Extremity Problem,Nontraumatic Stated complaint: LT Knee and Foot Pain History of Present Illness HPI narrative: Ten Solomon is a 39-year-old male with past medical history hypertension, left foot injury, left knee injury, who presents with continued swelling to his left foot. He states he usually does have swelling to his lower extremities but it does go down and he feels like the swelling to the top of his left foot since and pain to the bottom of the left foot has been getting worse since going back to work over the past 2 weeks. He denies any falls or trauma but states he has been going up and down the ladder lot he is concerned that he might have re- injured his previous injury to the bottom of his left foot. He states the pain really isn't that bad but he can feel it when he steps on it. He has not been able to elevate it he has been taking naproxen for pain. He states he is taking all of his prescribed medications. He states he does have a primary care doctor follow-up in 9 days but he would like something stronger for pain before that. He is also asking for a work note. Related Data Home Medications ?Medication ?Instructions ?Recorded ?Confirmed ?Last Taken ?Type naproxen 500 mg tablet 500 mg PO DAILY 10/14/24 12/29/24 11/17/24 History Allergies Allergy/AdvReac Type Severity Reaction Status Date / Time lisinopril AdvReac Intermediate Vomiting Verified 12/29/24 18:41 amlodipine AdvReac Mild pedal edema Verified 12/29/24 18:41 Review of Systems Review of Systems: All systems reviewed & are unremarkable except as noted in HPI and below PMFSH Past Medical History Medical History Atrial flutter Low testosterone in male Left ankle injury Right foot injury Vitamin D deficiency Osteoarthritis Dyslipidemia Essential (primary) hypertension Surgical History Surgical History History of shoulder surgery (~10/16/22) left: Dr. Mccoy History of left knee surgery 2011,2012,2013 - Dr. Pena Family History Family History Other High cholesterol Social History Social History Smoking packs per day: 0.25 Smoking cigarettes per day: 5.0 Years smoked: 10 Smoking pack-years: 2.50 Smoking status: Current every day smoker Tobacco type: cigarettes Alcohol intake: never Substance use: never Substance use type: does not use Lack of Transportation: No Lack of Food: Never True Current Housing: I Have Housing Concerned About Future Housing: No Difficulty Paying Gas/Electric Bills: No Difficulty Paying for Meds: No Currently Unemployed: No Education: Bachelor's Degree Difficulty w/ Childcare or Family Care: No Living arrangements: alone Occupation/Education: occupation 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 HEAD: Normocephalic, atraumatic. EYES: PERRLA and EOMI. ENT: Nares clear, no rhinorrhea or epistaxis. Mucous membranes moist. Oropharynx without tonsillar hypertrophy exudate or other lesions. NECK: Supple. No adenopathy or masses. No carotid bruits or JVD CHEST: Clear to auscultation. No respiratory distress. No wheezes rales or rhonchi HEART: Regular rate and rhythm. No murmur heard. Normal peripheral pulses. EXTREMITIES: Normal range of motion. bilateral lower extremity edema SKIN: Warm, dry, no rash. NEURO: No focal deficits. Alert and oriented x3. PSYCH: Normal mood and affect. Course Course Level of Care: Express Care Visit Vital Signs Vital signs: Vital Signs Temperature 36.0 C L 12/29/24 18:42 Pulse Rate 83 12/29/24 18:42 Respiratory Rate 20 12/29/24 18:42 Blood Pressure 164/97 H 12/29/24 18:42 Pulse Oximetry 97 12/29/24 18:42 Oxygen Delivery Room Air 12/29/24 18:42 Temperature 36.0 C L 12/29/24 18:42 Pulse Rate 83 12/29/24 18:42 Respiratory Rate 20 12/29/24 18:42 Blood Pressure 164/97 H 12/29/24 18:42 Pulse Oximetry 97 12/29/24 18:42 Oxygen Delivery Room Air 12/29/24 18:42 Medical Decision Making MDM Narrative Medical decision making narrative: 39-year-old who presents with reported history of breaking the bottom of his left foot last year and now having increased pain and swelling to his foot after being at work the past couple weeks going up and down a ladder. He denies any falls or trauma on exam he is noted to have bilateral lower extremity edema which he states he usually does have swelling but the swelling to the top of his left foot does not seem to get better like it normally does. It is difficult for me to appreciate any increased swelling to the left foot as opposed to the right foot. Pedal pulses are strong there is +1 pitting edema bilaterally range of motion is intact no calf tenderness or redness appreciated on exam plan to check an x-ray of his left foot, provide a work note, encouraged to continue naproxen as he has been for the pain, encouraged to elevate and wrapped with an Dylan wrap to help with the swelling. I let him know that we do not carry narcotics here and we are unable to prescribe them from here and that he should follow up with his primary care doctor if he is needing something stronger, he states he has an appointment with his primary care doctor in 9 days. Then states he actually has an appointment with the wildlife removal specialist on the which is in 6 days. Left foot XR: No acute osseous abnormality left foot. 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 Vital Signs Vital Signs: Vital Signs Temperature 36.0 C L 12/29/24 18:42 Pulse Rate 83 12/29/24 18:42 Respiratory Rate 20 12/29/24 18:42 Blood Pressure 164/97 H 12/29/24 18:42 Pulse Oximetry 97 12/29/24 18:42 Oxygen Delivery Room Air 12/29/24 18:42 Temperature 36.0 C L 12/29/24 18:42 Pulse Rate 83 12/29/24 18:42 Respiratory Rate 20 12/29/24 18:42 Blood Pressure 164/97 H 12/29/24 18:42 Pulse Oximetry 97 12/29/24 18:42 Oxygen Delivery Room Air 12/29/24 18:42 vitals reviewed by me Imaging Data Radiologist's impression: Impressions Foot X-Ray 12/29/24 19:21 IMPRESSION: No acute osseous abnormality left foot. Discharge Plan Discharge Clinical Impression: Acute pain of left foot Patient Disposition: Home Condition: Stable Instructions: Antibiotic Form Additional Instructions: continue to wear the Dylan wrap to help compress to your foot and supported it elevate your foot while at rest at all times to help with the swelling and the pain ice your foot where the pain is 20 minutes at a time over the next couple days follow-up with your primary care doctor as scheduled if he develop any worsening symptoms such as increased pain, calf tenderness, redness, increased swelling, chest pain, shortness of breath then proceed to the emergency department Patient Language: Serbian Prescriptions: No Action carvedilol [Coreg] 25 mg tablet 25 mg PO Q12H Qty: 180 1RF Rx Instructions: must administer with a meal/food aspirin 325 mg tablet,delayed release (DR/EC) 325 mg PO DAILY Qty: 90 2RF flecainide 100 mg tablet 100 mg PO Q12H Qty: 60 5RF naproxen 500 mg tablet 500 mg PO DAILY diltiazem HCl [Cartia XT] 240 mg capsule,extended release 24hr 480 mg PO DAILY Qty: 60 5RF metformin [Glucophage XR] 500 mg tablet extended release 24 hr 500 mg PO QPM Qty: 90 1RF atorvastatin [Lipitor] 10 mg tablet 10 mg PO QHS Qty: 90 1RF fenofibrate 160 mg tablet 160 mg PO DAILY Qty: 90 1RF losartan-hydrochlorothiazide 100-25 mg tablet 1 tablet PO DAILY Qty: 90 1RF Follow-up/Referrals: Frankie Solano MD [Primary Care Provider] - 1 Week Stand Alone Forms: Work/School Release IP Time of Disposition: 19:30
== END 2024-12-29 19:31 | disposition home or self-care (01) ==
PROVIDERS: Emergency Provider Nurse Practitioner Family; PCP Family Medicine
DX: M79.672 Pain in left foot (principal); F17.210 Nicotine dependence, cigarettes, uncomplicated; I48.92 Unspecified atrial flutter; I10 Essential (primary) hypertension; E78.5 Hyperlipidemia, unspecified; M19.90 Unspecified osteoarthritis, unspecified site
CPT/HCPCS: 73630; 99213; G0463